=== PATIENT | male | born 1995 | race Caucasian/White ===

== ENCOUNTER 2017-05-22 13:53 | Emergency (ER) | payer OTHER ==
[2017-05-22 14:10] VITALS: BP 137/72
[2017-05-22] MEDS ORDERED: LIDOCAINE 1%/EPINEPHRINE INJ 20 ML VIAL INJ ONE (15:13)
--- NOTE | 2017-05-22 15:20 | ER Document Report ---
ED Wound <ANTONELLA MARSHALL - Last Filed: 05/22/17 16:59> - General Mode of Arrival: Wheelchair Information source: Patient TRAVEL OUTSIDE OF THE [place] IN LAST 30 DAYS: No - HPI Occurred: Just prior to arrival <MELISSA BARR - Last Filed: 05/22/17 17:23> - General Chief Complaint: Laceration Stated Complaint: RIGHT LEG INJURY Time Seen by Provider: 05/22/17 15:06 Notes: This is a 21-year-old male presenting to emergency department for a laceration to his left outer calf. 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 Patient's last tetanus vaccination was about 3-4 months ago. Patient has no known allergies, no pertinent medical history, and does not take any regular medications. (MELISSA BARR) Past Medical History - General Information source: Patient - Social History Smoking Status: Never Smoker Cigarette use (# per day): No Chew tobacco use (# tins/day): No Smoking Education Provided: No Frequency of alcohol use: None Drug Abuse: None Family History: None Patient has suicidal ideation: No Patient has homicidal ideation: No - Medical History Medical History: Negative Past Surgical History: Reports: Other - traumatic injury resulting in impaction or the department. <MELISSA BARR - Last Filed: 05/22/17 17:23> Review of Systems - Review of Systems Constitutional: No symptoms reported EENT: No symptoms reported Cardiovascular: No symptoms reported Respiratory: No symptoms reported Gastrointestinal: No symptoms reported Genitourinary: No symptoms reported Male Genitourinary: No symptoms reported Musculoskeletal: See HPI Skin: See HPI, Other - laceration Hematologic/Lymphatic: No symptoms reported Neurological/Psychological: No symptoms reported -: Yes All other systems reviewed and negative <MELISSA BARR - Last Filed: 05/22/17 17:23> Physical Exam <ANTONELLA MARSHALL - Last Filed: 05/22/17 16:59> - Vital signs Interpretation: Normal <MELISSA BARR - Last Filed: 05/22/17 17:23> - Vital signs Vitals: Temp Pulse BP Pulse Ox 98.5 F 69 137/72 H 99 05/22/17 14:07 05/22/17 14:07 05/22/17 14:07 05/22/17 14:07 - Notes Notes: GENERAL: Alert, interacts well. Mild distress. HEAD: Normocephalic, atraumatic. EYES: Appear normal. Pupils equal, round, and reactive to light. ENT: Moist mucus membranes, tongue midline. NECK: Full range of motion. Supple. Trachea midline. LUNGS: Clear to auscultation bilaterally, no wheezes, rales, or rhonchi. No respiratory distress. HEART: Regular rate and rhythm. No murmurs, gallops, or rubs. ABDOMEN: Soft, non-tender. Non-distended. Normal bowel sounds. EXTREMITIES: Moves all 4 extremities spontaneously. Normal strength. No edema. NEUROLOGICAL: Alert and oriented x3. Normal speech. No focal neurological deficits. GCS 15. PSYCH: Normal affect, normal mood. SKIN: Warm, dry, normal turgor. 4 cm irregular laceration extending into the muscle of the right lower leg. (MELISSA BARR) - Vital Signs Vital signs: Temp Pulse Resp BP Pulse Ox 98.5 F 69 137/72 H 99 05/22/17 14:07 05/22/17 14:07 05/22/17 14:07 05/22/17 14:07 Procedures - Laceration/Wound Repair Right Lower Leg Time completed: 16:50 Wound length (cm): 4 Wound's Depth, Shape: Into muscle, Irregular Laceration pre-procedure: Sterile drapes applied, Shur-Clens applied Anesthetic type: 1% Lidocaine w/epi Volume Anesthetic (mLs): 6 Wound explored: Clean, No foreign body removed Irrigated w/ Saline (mLs): 30 Wound Debrided: Minimal Wound Repaired With: Sutures Suture Size/Type: 3:0 Number of Sutures: 5 Layer Closure?: No Post-procedure NV exam normal: Yes Complications: No <ANTONELLA MARSHALL - Last Filed: 05/22/17 16:59> Discharge <ANTONELLA MARSHALL - Last Filed: 05/22/17 16:59> <MELISSA BARR - Last Filed: 05/22/17 17:23> - Discharge Clinical Impression: Laceration of right lower leg Qualifiers: Encounter type: initial encounter Qualified Code(s): S81.811A - Laceration without foreign body, right lower leg, initial encounter Additional Instructions: Laceration Care: Your laceration has been sutured to keep the skin edges aligned during healing. The time of suture removal depends on the nature and location of your cut. Please follow the care instructions the doctor has outlined for you and return for further care, according to the schedule you've been given. Keep the wound and dressing clean. Unless you were told otherwise, you may shower daily, blotting the wound dry with a clean, unused towel. At other times, If the dressing gets wet or blood soaked, remove it and blot the wound dry, then reapply a new dressing. Unless you were instructed otherwise, dressings should be changed at least daily. If any signs of infection occur (swelling, redness, increasing tenderness, red streaks, tender lumps in the armpit or groin above the laceration, or fever) , see the doctor immediately. ELEVATE THE LEG TODAY AND LIMIT WALKING. KEEP THE WOUND CLEAN AND DRESSED. RETURN IN 10 DAYS FOR SUTURE REMOVAL. RETURN SOONER IF ANY SIGNS OF INFECTION. RETURN TO THE EMERGENCY ROOM IF ANY NEW OR WORSENING SYMPTOMS. Scribe Attestation: 05/22/17 15:22 I personally performed the services described in the documentation, reviewed and edited the documentation which was dictated to the scribe in my presence, and it accurately records my words and actions. (ANTONELLA MARSHALL) Scribe Documentation - Scribe Written by Kari:: Kari Scott 05/22/2017 17:15 acting as scribe for :: Augusto <MELISSA BARR - Last Filed: 05/22/17 17:23>
== END 2017-05-22 17:26 | disposition home or self-care (01) ==
LOC: ER 13:53
PROC: 0HQKXZZ Repair Right Lower Leg Skin, External Approach (ICD-10-PCS; principal; 2017-05-22)
DX: S81.811A Laceration without foreign body, right lower leg, initial encounter (principal); W25.XXXA Contact with sharp glass, initial encounter; Y93.H3 Activity, building and construction; Y99.0 Civilian activity done for income or pay
CPT/HCPCS: 99282; 12002; J3490

== ENCOUNTER 2020-03-20 18:55 | Emergency (ER) | payer SELFPAY ==
[2020-03-20 19:32] VITALS: BP 124/54
[2020-03-20] MEDS ORDERED: HYDROCODONE/ACETAMINOPHEN 5-325 MG (6 TAB/ER DISP) PO PRN (20:35)
[2020-03-20] MEDS ORDERED: CEPHALEXIN 500 MG CAPSULE PO ONE (20:35)
--- NOTE | 2020-03-20 20:37 | ER Document Report ---
ED Hand/Wrist Injury - General Chief Complaint: Laceration Stated Complaint: LACERATION/LEFT INDEX FINGER Time Seen by Provider: 03/20/20 20:27 Primary Care Provider: [facility] [Provider [facility]] - Follow up as needed [facility] [Provider [facility]] - Follow up as needed [facility] [Provider Group] - Follow up as needed Mode of Arrival: Ambulatory Information source: Patient Notes: 24-year-old male presented to ED for avulsion injury to the left index finger. He states it happened just before he came to the emergency room at work. States he was using a pair clippers and he clipped the tip of his finger off. There is no bony injuries. He has an avulsion injury to the skin. He is alert oriented respirations regular nonlabored. He states he just recently had his tetanus and does not need a tetanus immunization at this time. He states he did go to the urgent care and they told him he had to come to the emergency room. We will treat the patient with [place] dispense pack for the pain clean the wound with surgical scrub, rinsed with saline, apply bacitracin and Xeroform covered by Telfa and Kerlix. Patient to follow-up with primary care or emergency room for any signs or symptoms of infection. He will be discharged home with prescription for Keflex. TRAVEL OUTSIDE OF THE [place] 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 Lives with: Spouse/Significant other Family History: None Patient has homicidal ideation: No - Past Medical History Cardiac Medical History: Reports: None Pulmonary Medical History: Reports: None EENT Medical History: Reports: None Neurological Medical History: Reports: None Endocrine Medical History: Reports: None Renal/ Medical History: Reports: None Malignancy Medical History: Reports None GI Medical History: Reports: None Musculoskeletal Medical History: Reports Hx Musculoskeletal Trauma Skin Medical History: Reports None Psychiatric Medical History: Reports: Hx Depression Traumatic Medical History: Reports: Hx Fractures - Arm Infectious Medical History: Reports: None Past Surgical History: Reports: Hx Oral Surgery, Other - traumatic injury resulting in impaction or the department. - Immunizations Hx Diphtheria, Pertussis, Tetanus Vaccination: Yes - 04/09 Review of Systems - Review of Systems Constitutional: No symptoms reported EENT: No symptoms reported Cardiovascular: No symptoms reported Respiratory: No symptoms reported Gastrointestinal: No symptoms reported Genitourinary: No symptoms reported Male Genitourinary: No symptoms reported Musculoskeletal: No symptoms reported Skin: Other - Avulsion injury to the tip of the left index finger Hematologic/Lymphatic: No symptoms reported Neurological/Psychological: No symptoms reported -: Yes All other systems reviewed and negative Physical Exam - Vital signs Vitals: Temp Pulse Resp BP Pulse Ox 98.4 F 68 28 H 124/54 L 100 03/20/20 19:31 03/20/20 19:31 03/20/20 19:31 03/20/20 19:31 03/20/20 19:31 Interpretation: Normal - General General appearance: Appears well, Alert - HEENT Head: Normocephalic, Atraumatic Eyes: Normal Pupils: PERRL - Respiratory Respiratory status: No respiratory distress Chest status: Nontender Breath sounds: Normal Chest palpation: Normal - Cardiovascular Rhythm: Regular Heart sounds: Normal auscultation Murmur: No - Abdominal Inspection: Normal Distension: No distension Bowel sounds: Normal Tenderness: Nontender Organomegaly: No organomegaly - Back Back: Normal, Nontender - Extremities General upper extremity: Normal inspection, Nontender, Normal color, Normal ROM, Normal temperature General lower extremity: Normal inspection, Nontender, Normal color, Normal ROM, Normal temperature, Normal weight bearing. No: César's sign - Neurological Neuro grossly intact: Yes Cognition: Normal Orientation: AAOx4 David Coma Scale Eye Opening: Spontaneous [place] Coma Scale Verbal: Oriented David Coma Scale Motor: Obeys Commands [place] Coma Scale Total: 15 Speech: Normal Motor strength normal: LUE, RUE, LLE, RLE Sensory: Normal - Psychological Associated symptoms: Normal affect, Normal mood - Skin Skin Temperature: Warm Skin Moisture: Dry Skin Color: Normal Skin irregularity: other - Avulsion injury to the tip of the left index finger Location of irregularity: Extremities Irregularity with: Tenderness Course - Re-evaluation Re-evalutation: 03/21/20 01:36 Injury was cleaned well with surgical scrub rinsed with saline bacitracin Xeroform and Telfa was applied and then wrapped in gauze. Patient was given instructions on cleaning and care for this injury. Patient was discharged home. - Vital Signs Vital signs: Temp Pulse Resp BP Pulse Ox 98.4 F 68 28 H 124/54 L 100 03/20/20 19:31 03/20/20 19:31 03/20/20 19:31 03/20/20 19:03/20/20 19:31 Discharge - Discharge Clinical Impression: Avulsion injury left index finger Condition: Stable Disposition: HOME, SELF-CARE Additional Instructions: Avulsion Injury You have an avulsion injury -- a loss of skin which can't be helped by suturing. When large, these injuries can require skin grafting. Smaller defects or shallow avulsions usually heal well with dressings. Keep the dressing clean and dry. If the bandage becomes wet, remove it, blot the area dry, and apply a fresh dressing. Change the dressings every day. Complete healing may take anywhere from 10 days to two months. The healing time depends on the size and depth of the avulsion and on the amount of crushing of underlying tissues. Re-examination by the physician is often necessary. If any signs of infection occur (swelling, redness, increasing tenderness, red streaks, profuse purulent drainage from the avulsion, tender lumps in the armpit or groin above the avulsion, or fever), see your doctor immediately. SOAP CLEANSING: Gently wash the wound daily using a mild soap (like Ivory, Phisoderm, Neutrogena). Use warm water, rubbing gently until all debris, ooze, and crusting have been washed from the wound. Allow to dry briefly (about 10 minutes) after cleaning. Repeat this cleansing at least three times a day for the first two days and then once or twice a day. ANTIBIOTIC OINTMENT PROTECTION: Your wounds are such that dressing them is not practical or optional. After cleansing, you should apply a thin coating of antibiotic ointment (Bacitracin, not Neosporin) to the wounds at least three times daily. This lessens infection risk, and may decrease the amount of scarring. Use a q-tip or dull butter knife, not your finger, to apply this ointment. Any debris or ooze which builds up in the ointment should be gently rubbed off with a sterile gauze pad. Harder crusting may need to be gently scrubbed off with a clean wash cloth with soap and warm water, perhaps applying a warm, wet wash cloth to the wound for ten minutes first. Development of redness, severe itching, or blistering may mean allergy to the ointment. See the doctor. Cephalexin The antibiotic you've been prescribed is a member of the cephalosporin class. This type of antibiotic covers a wide variety of infections, including those of the skin, lungs, and urinary tract. It's useful for staph infections. This antibiotic is slightly similar to the penicillin family. In rare cases, a person who is allergic to penicillin will also be allergic to this medication. If you have had a severe allergic reaction to penicillin, and have not taken this antibiotic since that time, notify your doctor. Antibiotics which cover many germs ("broad spectrum" antibiotics) are more likely to cause diarrhea or "yeast" infections. Women prone to vaginal yeast problems may suffer an attack after taking this antibiotic. In infants, oral thrush (white spots "stuck" on the cheek) or yeast diaper rash may result. See your doctor if these problems occur. Call at once if you develop itching, hives, shortness of breath, or lightheadedness. ORAL NARCOTIC MEDICATION: You have been given a [place] dispense pack for pain control. This medication is a narcotic. It's best taken with food, as nausea can result if taken on an empty stomach. Don't operate machinery or drive within six hours of taking this medication. Do not combine this medicine with alcohol, or with any medication which can cause sedation (such as cold tablets or sleeping pills) unless you get permission from the physician. Narcotics tend to cause constipation. If possible, drink plenty of fluids and eat a diet high in fiber and fruits. FOLLOW-UP CARE: Please return in __2-3___ days for an infection check and dressing change. If you have been referred to another physician for follow-up care, call that physicians office for an appointment as you were instructed. If you experience a significant change in your laceration, or if you are concerned there may be an infection (swelling, redness, drainage, increasing tenderness, red streaks, tender lumps in the armpit or groin above the laceration, or fever), return to the Emergency Department immediately re-evaluation. Prescriptions: Cephalexin Monohydrate [Keflex 500 mg Capsule] 500 mg PO Q6H 5 Days #20 capsule Referrals: [facility] [Provider Group] - Follow up as needed [facility] [Provider [facility]] - Follow up as needed [facility] [Provider Group] - Follow up as needed
== END 2020-03-20 21:25 | disposition home or self-care (01) ==
LOC: ER 18:55
DX: S61.211A Laceration without foreign body of left index finger without damage to nail, initial encounter (principal); W27.8XXA Contact with other nonpowered hand tool, initial encounter
CPT/HCPCS: 99282